=== PATIENT | male | born 1985 | race Caucasian/White ===

== ENCOUNTER 2019-04-14 08:58 | Emergency (ER) | payer OTHER ==
[~2019-04-14] VITALS: Ht 177.8 cm; Wt 104.3 kg
[2019-04-14 09:03] VITALS: Ht 177.8 cm; Wt 104.3 kg
[2019-04-14 10:04] VITALS: BP 134/93
== END 2019-04-14 10:04 | disposition home or self-care (01) ==
LOC: ED 08:58
DX: S60.221A Contusion of right hand, initial encounter (principal); V48.5XXA Car driver injured in noncollision transport accident in traffic accident, initial encounter; Y93.I9 Activity, other involving external motion; Y92.488 Other paved roadways as the place of occurrence of the external cause; Y99.8 Other external cause status
CPT/HCPCS: Q0092